=== PATIENT | male | born 1995 | race Hispanic/Latino ===

== ENCOUNTER 2017-07-23 16:38 | Emergency (ER) | payer OTHER | END 2017-07-23 19:45 | disposition home or self-care (01) | LOC: M ED 16:38 | DX: L02.611 Cutaneous abscess of right foot (principal); L84 Corns and callosities | CPT/HCPCS: 10060 ==

== ENCOUNTER 2018-02-16 10:13 | Emergency (ER) | payer OTHER | END 2018-02-16 12:11 | disposition home or self-care (01) | LOC: M ED 10:13 | DX: Q76.0 Spina bifida occulta (principal); M54.5 Low back pain | CPT/HCPCS: 73502 ==

== ENCOUNTER 2018-06-16 21:32 | Emergency (ER) | payer OTHER ==
[~2018-06-16] VITALS: Ht 182.9 cm; Wt 45.5 kg
[2018-06-16 21:32] VITALS: BP 152/69
[~2018-06-16 21:32] MED LIST: BACT800T5 PO
[2018-06-17] MEDS ORDERED: NORCO, ANEXSIA 5/325MG TABLET (HYDROcodone/ACETAMINOPHEN) PO ONE (00:15)
[2018-06-17] MEDS ORDERED: NORCO 5/325MG TABLET (BULK FOR ED) PO ONE (00:45)
--- NOTE | 2018-06-17 13:04 | REP ---
RIGHT ANKLE COMPLETE: 06/16/2018. Clinical history: Injury. Findings: No prior study. Four views are provided. There is a ossific density adjacent to the inferior margin of the lateral malleolus. On one-view it has fairly sharp margins and there is significant soft tissue swelling. I suspect this is an acute avulsion. Mortise joint symmetric and preserved. There is some minor degenerative changes inferior aspect medial malleolus and adjacent medial talus. No talar dome osteochondral defect. No subtalar joint abnormality. I see no heel spurs and the talonavicular and calcaneocuboid joints normal. Impression: 1. Significant soft tissue swelling anterolateral aspect of the ankle and lateral malleolus with a suspected inferior avulsion off the lateral malleolus, likely acute. No other acute finding. Electronically Signed by Reynold Andersen MD 06/17/2018 02:01 P
== END 2018-06-17 00:54 | disposition home or self-care (01) ==
LOC: M ED 21:32
DX: S82.891A Other fracture of right lower leg, initial encounter for closed fracture (principal); X50.9XXA Other and unspecified overexertion or strenuous movements or postures, initial encounter; Y92.838 Other recreation area as the place of occurrence of the external cause; Y93.66 Activity, soccer

== ENCOUNTER → 2019-02-27 | Outpatient (CLI) | payer OTHER ==
--- NOTE | 2019-02-27 17:39 | REP ---
RIGHT KNEE ULTRASOUND: Real-time sonographic evaluation of the right knee performed anteriorly at the site of swelling. In the subcutaneous soft tissues at that location there is an area of simple fluid as well as complex fluid measuring 5.4 x 1.6 x 5.9 cm. The findings suggest bursitis at this location. Further evaluation could be made with MRI if desired. Electronically Signed by Florian Menon MD 03/01/2019 08:58 A
== END ==
LOC: M RAD 15:01
PROVIDERS: ATTEND Physician Assistant
DX: R22.41 Localized swelling, mass and lump, right lower limb (principal)

== ENCOUNTER 2020-09-01 10:47 | Emergency (ER) | payer OTHER ==
[~2020-09-01] VITALS: Ht 180.3 cm; Wt 107.6 kg
--- NOTE | 2020-09-01 12:05 | REP ---
INDICATION: pain/swelling COMPARISON: None. TECHNIQUE: There are five views. FINDINGS: There is no fracture or dislocation. Mineralization and joint spaces are normal. There are no calcifications or foreign bodies. There is no effusion. IMPRESSION: Essentially negative left knee. . <Electronically signed by Florian Munoz > 09/01/20 [id number]
[2020-09-01 12:31] VITALS: BP 129/78
== END 2020-09-01 12:33 | disposition home or self-care (01) ==
LOC: M ED 10:47
DX: S83.92XA Sprain of unspecified site of left knee, initial encounter (principal); X50.0XXA Overexertion from strenuous movement or load, initial encounter; Y92.9 Unspecified place or not applicable; Y93.9 Activity, unspecified; Y99.1 Military activity

== ENCOUNTER 2021-01-23 09:25 | Emergency (ER) | payer OTHER ==
[~2021-01-23] VITALS: Ht 180.3 cm; Wt 100.5 kg
--- NOTE | 2021-01-23 10:42 | REP ---
INDICATION: fall ,pain COMPARISON: None. TECHNIQUE: AP, lateral, bilateral oblique views. FINDINGS: Diffuse swelling. Small nondisplaced corner fracture at the medial malleolus noted. IMPRESSION: Swelling and small nondisplaced corner fracture at the medial malleolus. <Electronically signed by John Lucero > 01/23/21 1038
--- NOTE | 2021-01-23 10:42 | REP ---
INDICATION: fall ,pain COMPARISON: None. TECHNIQUE: AP, lateral, bilateral oblique views left foot. FINDINGS: Old healed 5th metatarsal bone fracture noted. No acute fracture or dislocation. No subcutaneous emphysema or foreign body. IMPRESSION: No acute fracture or dislocation. <Electronically signed by John Lucero > 01/23/21 1034
--- NOTE | 2021-01-23 10:43 | REP ---
INDICATION: fall ,pain COMPARISON: None. TECHNIQUE: AP and lateral left tibia/fibula FINDINGS: There is a small nondisplaced corner/avulsion fracture of the distal tip medial malleolus. Generalized soft tissue swelling surrounding the ankle noted. No other fracture or dislocation. IMPRESSION: Small nondisplaced avulsion corner fracture at the medial malleolus. <Electronically signed by John Lucero > 01/23/21 [id number]
[2021-01-23 12:13] VITALS: BP 131/67
[2021-01-23] MEDS ORDERED: IBUPROFEN 800 MG TAB PO ONE (12:15)
== END 2021-01-23 12:48 | disposition home or self-care (01) ==
LOC: M ED 09:25
DX: S93.402A Sprain of unspecified ligament of left ankle, initial encounter (principal); S82.52XA Displaced fracture of medial malleolus of left tibia, initial encounter for closed fracture; X50.9XXA Other and unspecified overexertion or strenuous movements or postures, initial encounter; Y92.89 Other specified places as the place of occurrence of the external cause; Y99.0 Civilian activity done for income or pay

== ENCOUNTER 2021-09-28 19:20 | Emergency (ER) | payer OTHER ==
[~2021-09-28] VITALS: Ht 180.3 cm; Wt 106.5 kg
[2021-09-28] MEDS ORDERED: IBUPROFEN 600MG TAB PO ONE (19:40)
[2021-09-28] MEDS ORDERED: ACETAMINOPHEN TAB 650MG DOSE (2X325MG) PO ONE (19:40)
[2021-09-28] MEDS ORDERED: NIRMATRELVIR/RITONAVIR CO-PACK (EMERGENCY USE AUTH) PO SCH (21:00)
[2021-09-28 22:07] VITALS: O2SAT 97
[2021-09-28 22:10] LABS: BASO % 0.3 % (0.0-1.0); EOS % 0.1 % (0.0-3.0); HEMATOCRIT 41.8 % (42.0-52.0); HEMOGLOBIN 14.5 g/dl (13.5-17.5); LYMPH # 0.4 10^3/uL (1.5-5.0); LYMPH % 5.8 % (24.0-44.0); MEAN CORPUSCULAR HEMOGLOBIN 31.4 pg (27.0-33.0); MEAN CORPUSCULAR HGB CONC 34.7 g/dl (32.0-36.5); MEAN CORPUSCULAR VOLUME 90.5 fl (80.0-96.0); MONO # 1.2 10^3/uL (0.0-0.8); MONO % 16.9 % (2.0-8.0); NEUTROPHILS # 5.6 10^3/uL (1.5-8.5); NEUTROPHILS % 76.6 % (36.0-66.0); PLATELET COUNT, AUTOMATED 238 10^3/uL (150-450); RED BLOOD COUNT 4.62 10^6/uL (4.30-6.10); WHITE BLOOD COUNT 7.3 10^3/uL (4.0-10.0)
[2021-09-28 22:48] LABS: BLOOD UREA NITROGEN 18 MG/DL (7-18); CALCIUM LEVEL 9.3 MG/DL (8.5-10.1); CARBON DIOXIDE LEVEL 25 MEQ/L (21-32); CHLORIDE LEVEL 106 MEQ/L (98-107); CREATININE FOR GFR 1.24 MG/DL (0.70-1.30); GLOMERULAR FILTRATION RATE > 60.0 (>60); GLUCOSE, FASTING 101 MG/DL (70-100); POTASSIUM SERUM 3.7 MEQ/L (3.5-5.1); SODIUM LEVEL 138 MEQ/L (136-145)
[2021-09-28] MEDS ORDERED: VITA100093 PO (23:31)
[2021-09-28 23:32] VITALS: BP 126/61
[2021-09-28] MEDS ORDERED: FISH1000 PO (23:32)
[2021-09-28] MEDS ORDERED: [UNRECOGNIZED DRUG - CODE] PO (23:32)
[2021-09-28] MEDS ORDERED: HOME MED LIST COMPLETE! XX SCH (23:35)
[2021-09-29] MEDS ORDERED: NIRMATRELVIR/RITONAVIR CO-PACK (EMERGENCY USE AUTH) PO SCH (09:00)
== END 2021-09-28 23:34 | disposition home or self-care (01) ==
LOC: M ED 19:20
DX: R50.9 Fever, unspecified (principal); R05.9 Cough, unspecified; U07.1 COVID-19